=== PATIENT | female | born 1965 | race Caucasian/White ===

== ENCOUNTER 2017-07-16 20:26 | Emergency (ER) | payer MEDICAID ==
[~2017-07-16] VITALS: Ht 152.4 cm; Wt 68.0 kg
[2017-07-16 20:59] VITALS: BP 128/55; Ht 152.4 cm; Wt 68.0 kg
== END 2017-07-17 02:36 | disposition home or self-care (01) ==
LOC: ED 20:26
DX: G44.209 Tension-type headache, unspecified, not intractable (principal); B34.9 Viral infection, unspecified
CPT/HCPCS: J1885; J7613